=== PATIENT | female | born 2000 | race Caucasian/White ===

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

== ENCOUNTER 2022-03-01 16:15 | Inpatient (IN) | payer OTHER, MEDICAID ==
[~2022-03-01 16:15] MED LIST: Insulin Glargine,Human Rec. Analog 100 Units/ML 3 ML Pen SUBCUT ONE; Insulin Lispro 100 Unit/ML 3 ML KwikPen SUBCUT ONE
[2022-03-01] MEDS ORDERED: Ondansetron 4 MG/2 ML SDV ONE (17:42)
[2022-03-01] MEDS ORDERED: Insulin Lispro 100 Units/ML 3 ML Vial ONE (17:42)
[2022-03-01] MEDS ORDERED: Sodium Chloride 0.9% 1,000 ML IV ONE ×2 (17:45→21:30)
[2022-03-01] MEDS ORDERED: Pantoprazole 40 MG Vial IV ONE (22:00)
[2022-03-01] MEDS ORDERED: Nicotine 14 MG/24 Hr Patch TRDERM ONE (22:00)
[2022-03-01] MEDS ORDERED: hydrOXYzine HCl 25 MG Tab PO ONE (22:00)
[2022-03-26 11:25] LABS: ESTIMATED GFR 96 mL/min (>60)
== END 2022-03-02 13:40 | disposition home or self-care (01) | DRG 641 ==
LOC: JP.ED 16:15 → JP.ZCENSUS 20:30
PROVIDERS: ADMIT Nurse Practitioner; ATTEND Hospitalist
DX: E86.0 Dehydration (principal); E10.65 Type 1 diabetes mellitus with hyperglycemia; F41.8 Other specified anxiety disorders; F43.10 Post-traumatic stress disorder, unspecified
CPT/HCPCS: 82947; A9270-GY; C9113; J1815; J1815-GY; J2405; J7030

== ENCOUNTER 2022-04-23 17:34 | Emergency (ER) | payer OTHER, MEDICAID ==
[2022-04-23] MEDS ORDERED: Ondansetron 4 MG/2 ML SDV IVPUSH ONE (17:53)
[2022-04-23] MEDS ORDERED: Sodium Chloride 0.9% 1,000 ML IV SCH ×2 (18:00→20:00)
[2022-04-23] MEDS ORDERED: Insulin Regular, Human 100 Units/ML 3 ML Vial IVPUSH ONE (18:15)
[2022-04-23 18:34] LABS: ESTIMATED GFR 68 mL/min (>60)
[2022-04-23] MEDS ORDERED: Insulin Glargine,Human Rec. Analog 100 Units/ML 3 ML Pen SUBCUT ONE (21:14)
== END 2022-04-23 22:10 | disposition home or self-care (01) ==
LOC: JP.ED 17:34
DX: E10.10 Type 1 diabetes mellitus with ketoacidosis without coma (principal); R11.2 Nausea with vomiting, unspecified; F17.210 Nicotine dependence, cigarettes, uncomplicated; Z88.2 Allergy status to sulfonamides
CPT/HCPCS: 36415; 80053; 82009; 82947; 83690; 85025; 96361; 96374; 99284; J1815; J2405; J7030

== ENCOUNTER 2022-05-05 08:21 | Emergency (ER) | payer OTHER, MEDICAID ==
[2022-05-05] MEDS ORDERED: Sodium Chloride 0.9% 1,000 ML IV ONE (08:55)
[2022-05-05] MEDS ORDERED: Insulin Regular, Human 100 Units/ML 3 ML Vial IVPUSH ONE ×2 (09:27→10:44)
[2022-05-05 09:46] LABS: CORONAVIRUS COVID-19 NAA NEGATIVE (NEGATIVE)
[2022-05-05] MEDS ORDERED: 50% Dextrose in Water 50 ML Syringe IVPUSH PRN (10:44)
[2022-05-05] MEDS ORDERED: Glucagon,Human Recombinant 1 MG Vial IM PRN (10:44)
== END 2022-05-05 12:02 | disposition home or self-care (01) ==
LOC: JP.ED 08:21
DX: E10.10 Type 1 diabetes mellitus with ketoacidosis without coma (principal); E10.65 Type 1 diabetes mellitus with hyperglycemia; Z88.2 Allergy status to sulfonamides; Z79.4 Long term (current) use of insulin; Z20.822 Contact with and (suspected) exposure to COVID-19
CPT/HCPCS: 0241U; 36415; 80048; 82009; 82947; 85025; 87081; 87880; 96360; 99284; J1815; J7030

== ENCOUNTER 2022-05-09 14:48 | Emergency (ER) | payer OTHER, MEDICAID ==
[2022-05-09] MEDS ORDERED: Sodium Chloride 0.9% 10 ML Syringe FLUSH PRN (15:19)
[2022-05-09] MEDS ORDERED: Sodium Chloride 0.9% 1,000 ML IV ONE ×2 (15:19→16:58)
[2022-05-09] MEDS ORDERED: Amoxicillin/Clavulanate K 875-125 MG Tab PO ONE (15:22)
[2022-05-09] MEDS ORDERED: Pantoprazole 40 MG Tab.CR PO ONE (15:22)
[2022-05-09 15:54] LABS: ESTIMATED GFR 81 mL/min (>60)
[2022-05-09] MEDS ORDERED: Glucagon,Human Recombinant 1 MG Vial IM PRN ×2 (16:06→16:59)
[2022-05-09] MEDS ORDERED: 50% Dextrose in Water 50 ML Syringe IVPUSH PRN ×2 (16:06→16:59)
[2022-05-09] MEDS ORDERED: Insulin Lispro 100 Units/ML 3 ML Vial SUBCUT ONE ×2 (16:06→16:59)
[2022-05-09] MEDS ORDERED: Potassium Chloride 20 MEQ Tab.ER PO ONE (16:55)
== END 2022-05-09 18:19 | disposition home or self-care (01) ==
LOC: JP.ED 14:48
DX: E10.10 Type 1 diabetes mellitus with ketoacidosis without coma (principal); J01.90 Acute sinusitis, unspecified; R74.8 Abnormal levels of other serum enzymes; R79.89 Other specified abnormal findings of blood chemistry; E87.8 Other disorders of electrolyte and fluid balance, not elsewhere classified; Z72.0 Tobacco use; Z88.2 Allergy status to sulfonamides; Z79.899 Other long term (current) drug therapy
CPT/HCPCS: 36415; 76705; 80048; 80053; 82009; 82803; 82947; 83690; 85025; 93005; 96360; 96361; 99285; A9270; J1815; J3490; J7030

== ENCOUNTER 2022-05-27 18:48 | Emergency (ER) | payer OTHER, MEDICAID ==
[2022-05-27] MEDS ORDERED: Sodium Chloride 0.9% 10 ML Syringe FLUSH PRN ×2 (19:23→20:22)
[2022-05-27] MEDS ORDERED: Sodium Chloride 0.9% 1,000 ML IV SCH ×2 (19:30→20:45)
[2022-05-27] MEDS ORDERED: HYDROmorphone 1 MG/ML Syringe IVPUSH ONE (19:55)
[2022-05-27] MEDS ORDERED: Ondansetron 4 MG/2 ML SDV IVPUSH ONE (19:56)
[2022-05-27 20:04] LABS: ESTIMATED GFR 89 mL/min (>60)
[2022-05-27] MEDS ORDERED: Insulin Regular in 0.9 % NACL 100 ML IV SCH (20:30)
[2022-05-28] MEDS: Sodium Chloride 0.9% 1,000 ML IV SCH ×2 (00:11→07:39)
[2022-05-28] MEDS ORDERED: Iopamidol 612 MG/ML 100 ML Bottle IV STA (00:18)
[2022-05-28] MEDS ORDERED: Sodium Chloride 0.9% 50 ML IV STA (00:19)
[2022-05-28] MEDS ORDERED: Glucagon,Human Recombinant 1 MG Vial IM PRN (05:38)
[2022-05-28] MEDS ORDERED: 50% Dextrose in Water 50 ML Syringe IVPUSH PRN (05:38)
[2022-05-28] MEDS ORDERED: Non-Formulary Medication 1 Each (Insulin Aspart [Novolog] 100 UNIT/ML Pen) SUBCUT SCH (07:00)
[2022-05-28] MEDS: Insulin Glargine,Human Rec. Analog 100 Units/ML 3 ML Pen SUBCUT SCH ×2 (07:25→09:11)
[2022-05-28] MEDS: Insulin Lispro 100 Unit/ML 3 ML KwikPen SUBCUT SCH ×2 (07:27→11:45)
[2022-05-28] MEDS ORDERED: Non-Formulary Medication 1 Each (Insulin Degludec [Tresiba Flextouch U-100] 100 UNIT/ML Pe SQ SCH (21:00)
== END 2022-05-28 13:28 | disposition home or self-care (01) ==
LOC: JP.ED 18:48
DX: K85.00 Idiopathic acute pancreatitis without necrosis or infection (principal); E10.10 Type 1 diabetes mellitus with ketoacidosis without coma; Z88.2 Allergy status to sulfonamides
CPT/HCPCS: 36415; 36600; 74177; 80048; 80053; 81001; 82009; 82803; 82947; 83690; 83735; 84100; 84132; 85025; 87040; 96361; 96374; 96375; 99284-25; 99285; J1170; J1815; J1815-GY; J2405; J3490; J7030; Q9967

== ENCOUNTER 2022-07-07 20:10 | Emergency (ER) | payer OTHER, MEDICAID | END 2022-07-07 21:01 | disposition home or self-care (01) | LOC: JP.ED 20:10 | DX: L05.01 Pilonidal cyst with abscess (principal); E10.9 Type 1 diabetes mellitus without complications; F17.210 Nicotine dependence, cigarettes, uncomplicated; Z88.2 Allergy status to sulfonamides | CPT/HCPCS: 99282 ==

== ENCOUNTER 2022-07-10 19:01 | Inpatient (IN) | payer OTHER, MEDICAID ==
[2022-07-10] MEDS ORDERED: Sodium Chloride 0.9% 1,000 ML IV ONE (19:28)
[2022-07-10] MEDS ORDERED: fentaNYL 50 MCG/ML SDV IVPUSH ONE (19:58)
[2022-07-10] MEDS ORDERED: Insulin Regular, Human 100 Units/ML 3 ML Vial IVPUSH ONE (20:05)
[2022-07-10] MEDS ORDERED: Insulin Glargine,Human Rec. Analog 100 Units/ML 3 ML Pen SUBCUT ONE (20:12)
[2022-07-10] MEDS ORDERED: Pantoprazole 40 MG Vial IVPUSH SCH (21:00)
[2022-07-10] MEDS ORDERED: Piperacillin/Tazobactam 2.25 GM in Sodium Chloride 0.9% 50 ML IV ONE (21:21)
[2022-07-10] MEDS ORDERED: Sodium Chloride 0.9% 1,000 ML IV SCH ×2 (21:45→23:15)
[2022-07-10 22:35] LABS: CORONAVIRUS COVID-19 NAA NEGATIVE (NEGATIVE)
[2022-07-10] MEDS ORDERED: Docusate Sodium 100 MG Cap PO PRN (23:15)
[2022-07-10] MEDS ORDERED: Ondansetron 4 MG Tab.DIS PO PRN (23:15)
[2022-07-10] MEDS ORDERED: Ondansetron 4 MG/2 ML SDV IV PRN (23:15)
[2022-07-10] MEDS ORDERED: Acetaminophen 325 MG Tab PO PRN (23:15)
[2022-07-10] MEDS ORDERED: Bisacodyl 5 MG Tab PO PRN (23:15)
[2022-07-10] MEDS ORDERED: HYDROmorphone 0.5 MG/0.5 ML Syringe IVPUSH PRN (23:15)
[2022-07-10] MEDS: Nicotine 14 MG/24 Hr Patch TRDERM SCH (23:48)
[2022-07-11] MEDS: oxyCODONE 5 MG Tab PO PRN ×2 (00:06→09:49)
[2022-07-11] MEDS ORDERED: Piperacillin/Tazobactam 2.25 GM in Sodium Chloride 0.9% 50 ML IV SCH (04:00)
[2022-07-11] MEDS ORDERED: Lidocaine 1% 50 ML MDV ONE (06:57)
[2022-07-11] MEDS ORDERED: Bupivacaine 0.5%/EPINEPHrine 1:200,000 50 ML MDV ONE (06:58)
[2022-07-11] MEDS ORDERED: Dextrose 5%-Lactated Ringers 1,000 ML IV SCH (07:30)
[2022-07-11] MEDS ORDERED: fentaNYL 250 MCG/5 ML SDV ONE (07:46)
[2022-07-11] MEDS ORDERED: Midazolam 1 MG/ML 2 ML SDV ONE (07:46)
[2022-07-11] MEDS ORDERED: Dexamethasone 4 MG/ML SDV ONE (07:47)
[2022-07-11] MEDS ORDERED: Glycopyrrolate 0.2 MG/ML 5 ML MDV ONE (07:47)
[2022-07-11] MEDS ORDERED: Neostigmine Methylsulfate 1 MG/ML 5 ML Syringe ONE (07:47)
[2022-07-11] MEDS ORDERED: Propofol 200 MG/20 ML SDV ONE (07:47)
[2022-07-11] MEDS ORDERED: Ondansetron 4 MG/2 ML SDV ONE (07:47)
[2022-07-11] MEDS ORDERED: Rocuronium 50 MG/5 ML Vial ONE (07:47)
[2022-07-11] MEDS ORDERED: Lactated Ringers 0 ML ONE (07:54)
[2022-07-11] MEDS ORDERED: oxyCODONE 5 MG Tab PO PRN (08:36)
[2022-07-11] MEDS: Insulin Lispro 100 Unit/ML 3 ML KwikPen SUBCUT SCH ×2 (09:18→13:16)
[2022-07-11] MEDS: Nicotine 14 MG/24 Hr Patch TRDERM SCH (09:43)
[2022-07-11] MEDS ORDERED: Piperacillin/Tazobactam/Dext 2.25 GM in Premix Bag 1 BAG IV SCH (10:00)
[2022-07-11] MEDS ORDERED: Insulin Lispro 100 Unit/ML 3 ML KwikPen SUBCUT SCH (17:00)
[2022-07-11] MEDS ORDERED: Insulin Glargine,Human Rec. Analog 100 Units/ML 3 ML Pen SUBCUT SCH (21:00)
[2022-07-11] MEDS ORDERED: Pantoprazole 40 MG Tab.CR PO SCH (21:00)
== END 2022-07-11 16:30 | disposition home or self-care (01) | DRG 581 ==
LOC: JP.ED 19:01 → JP.MS 21:53
PROVIDERS: ADMIT Nurse Practitioner; ATTEND Student in an Organized Health Care Education/Training Program
PROC: 0JD70ZZ Extraction of Back Subcutaneous Tissue and Fascia, Open Approach (ICD-10-PCS; principal; 2022-07-11)
DX: L05.01 Pilonidal cyst with abscess (principal); H54.7 Unspecified visual loss; F41.9 Anxiety disorder, unspecified; F17.200 Nicotine dependence, unspecified, uncomplicated; E10.65 Type 1 diabetes mellitus with hyperglycemia; Z20.822 Contact with and (suspected) exposure to COVID-19; Z88.2 Allergy status to sulfonamides
CPT/HCPCS: 0241U; 36415; 76705; 80048; 82947; 85025; 85027; 87070; 87075; 87077; 87186; 87205; 96361; 96365; 96375; 99222; 99285-25; A9270-GY; C9113; J1100; J1170; J1815; J1815-GY; J2001; J2250; J2405; J2543; J2704; J2710; J3010; J3490; J7030; J7120

== ENCOUNTER → 2022-10-11 | Emergency (ER) | payer OTHER, MEDICAID | LOC: JP.ED 20:50 | DX: Z53.21 Procedure and treatment not carried out due to patient leaving prior to being seen by health care provider (principal) ==

== ENCOUNTER 2022-11-02 12:29 | Emergency (ER) | payer OTHER, MEDICAID | END 2022-11-02 13:46 | disposition left against medical advice (07) | LOC: JP.ED 12:29 | DX: Z53.21 Procedure and treatment not carried out due to patient leaving prior to being seen by health care provider (principal) ==

== ENCOUNTER 2022-11-07 01:45 | Inpatient (IN) | payer OTHER, MEDICAID ==
[2022-11-07] MEDS ORDERED: HYDROmorphone 1 MG/ML Syringe IM ONE (02:42)
[2022-11-07 03:06] LABS: HEMATOCRIT 38.2 % (38.4-49.7); HEMOGLOBIN 13.8 g/dL (12.9-16.9); MEAN CORPUSCULAR HEMOGLOBIN 31.7 pg (31.6-35.5); MEAN CORPUSCULAR HGB CONC 36.1 g/dL (31.6-35.5); MEAN CORPUSCULAR VOLUME 87.8 fL (81.4-99.0); PLATELET COUNT,PLT 281 K/uL (130-375); RED BLOOD CELL COUNT 4.35 M/uL (4.14-5.76); WHITE BLOOD CELL COUNT,WBC 10.3 K/uL (3.2-11.0)
[2022-11-07 03:22] LABS: CALCIUM 9.2 mg/dL (8.5-10.1); CREATININE 0.9 mg/dL (0.8-1.3); EST CRCL DRUG DOSING (CG) 130.93 mL/min; POTASSIUM,K 4.6 mmol/L (3.6-5.2)
[2022-11-07 03:26] LABS: ANION GAP 12.6 mmol/L (5.0-14.0)
[2022-11-07 03:27] LABS: BAND ABSOLUTE MAN 0.82 K/uL; BAND PERCENT MAN 8 % (5-11); LYMPHOCYTES ABSOLUTE MAN 0.62 K/uL (0.8-3.3); LYMPHOCYTES PERCENT MAN 6 % (24-44); MONOCYTES ABSOLUTE MAN 1.03 K/uL (0.20-0.90); MONOCYTES PERCENT MAN 10 % (2-6); NEUTROPHILS ABSOLUTE MAN 7.83 K/uL (1.0-7.6); SEG NEUTROPHILS PERCENT MAN 76 % (36-66)
[2022-11-07] MEDS ORDERED: HYDROmorphone 0.5 MG/0.5 ML Syringe IVPUSH ONE (07:02)
[2022-11-07] MEDS ORDERED: Piperacillin/Tazobactam 3.375 GM in Sodium Chloride 0.9% 50 ML IV SCH (07:15)
[2022-11-07] MEDS ORDERED: fentaNYL 250 MCG/5 ML SDV ONE ×2 (07:33→10:48)
[2022-11-07] MEDS ORDERED: Ondansetron 4 MG/2 ML SDV ONE (07:34)
[2022-11-07] MEDS ORDERED: Dexamethasone 4 MG/ML SDV ONE (07:34)
[2022-11-07] MEDS ORDERED: Neostigmine Methylsulfate 1 MG/ML 5 ML Syringe ONE (07:34)
[2022-11-07] MEDS ORDERED: Rocuronium 50 MG/5 ML Vial ONE (07:34)
[2022-11-07] MEDS ORDERED: Succinylcholine 200 MG/10 ML MDV ONE (07:34)
[2022-11-07] MEDS ORDERED: Glycopyrrolate 0.2 MG/ML 5 ML MDV ONE (07:34)
[2022-11-07] MEDS ORDERED: Propofol 200 MG/20 ML SDV ONE (07:34)
[2022-11-07] MEDS ORDERED: Bupivacaine 0.5%/EPINEPHrine 1:200,000 50 ML MDV ONE (09:43)
[2022-11-07] MEDS ORDERED: Meropenem 500 MG SDV ONE (09:43)
[2022-11-07] MEDS ORDERED: fentaNYL 50 MCG/ML SDV IVPUSH ONE (10:01)
[2022-11-07] MEDS: Lactated Ringers 1,000 ML IV SCH ×3 (10:09→23:00)
[2022-11-07] MEDS ORDERED: HYDROmorphone 1 MG/ML Syringe IVPUSH PRN (10:43)
[2022-11-07] MEDS ORDERED: Ondansetron 4 MG Tab.DIS PO PRN (10:43)
[2022-11-07] MEDS ORDERED: Magnesium Hydroxide 400 MG/5 ML Susp 30 ML Cup PO PRN (10:43)
[2022-11-07] MEDS ORDERED: Ondansetron 4 MG/2 ML SDV IV PRN (10:43)
[2022-11-07] MEDS ORDERED: Scopolamine 1.5 MG Transdermal Patch ONE (11:16)
[2022-11-07] MEDS: Meropenem 1 GM in Sodium Chloride 0.9% 100 ML IV SCH ×2 (12:33→19:30)
[2022-11-07] MEDS: Insulin Lispro 100 Unit/ML 3 ML KwikPen SUBCUT SCH ×3 (12:46→21:08)
[2022-11-07] MEDS: Piperacillin/Tazobactam/Dext 3.375 GM in Premix Bag 1 BAG IV SCH ×2 (13:35→19:29)
[2022-11-07] MEDS: Nicotine 21 MG/24 Hr Patch TRDERM SCH ×2 (13:35→21:10)
[2022-11-07] MEDS: Enoxaparin 40 MG/0.4 ML Syringe SUBCUT SCH (13:36)
[2022-11-07 15:10] LABS: HEMOGLOBIN A1C 13.3 % (4.5-6.2)
[2022-11-07] MEDS: oxyCODONE 5 MG Tab PO PRN (19:28)
[2022-11-07] MEDS: Melatonin 3 MG Tab PO SCH (21:05)
[2022-11-07] MEDS: Acetaminophen 325 MG Tab PO PRN (21:18)
[2022-11-08] MEDS: Piperacillin/Tazobactam/Dext 3.375 GM in Premix Bag 1 BAG IV SCH ×4 (02:03→20:54)
[2022-11-08] MEDS: Acetaminophen 325 MG Tab PO PRN ×2 (02:05→22:04)
[2022-11-08] MEDS: Meropenem 1 GM in Sodium Chloride 0.9% 100 ML IV SCH (03:43)
[2022-11-08] MEDS: oxyCODONE 5 MG Tab PO PRN ×4 (03:46→19:23)
[2022-11-08 05:01] LABS: HEMATOCRIT 32.9 % (38.4-49.7); HEMOGLOBIN 11.7 g/dL (12.9-16.9); MEAN CORPUSCULAR HGB CONC 35.6 g/dL (31.6-35.5); MEAN CORPUSCULAR VOLUME 89.9 fL (81.4-99.0); RED BLOOD CELL COUNT 3.66 M/uL (4.14-5.76); WHITE BLOOD CELL COUNT,WBC 11.9 K/uL (3.2-11.0)
[2022-11-08 05:18] LABS: CALCIUM 8.5 mg/dL (8.5-10.1); CREATININE 0.9 mg/dL (0.8-1.3); EST CRCL DRUG DOSING (CG) 130.93 mL/min; POTASSIUM,K 4.3 mmol/L (3.6-5.2)
[2022-11-08 05:38] LABS: ANION GAP 15.3 mmol/L (5.0-14.0)
[2022-11-08] MEDS: Lactated Ringers 1,000 ML IV SCH (08:01)
[2022-11-08] MEDS ORDERED: Vancomycin 1 GM SDV IV SCH (09:00)
[2022-11-08] MEDS: Insulin Glargine,Human Rec. Analog 100 Units/ML 3 ML Pen SUBCUT SCH (09:05)
[2022-11-08] MEDS: Insulin Lispro 100 Unit/ML 3 ML KwikPen SUBCUT SCH ×4 (09:07→22:11)
[2022-11-08] MEDS: Nicotine 21 MG/24 Hr Patch TRDERM SCH (09:07)
[2022-11-08] MEDS ORDERED: Vancomycin 1.6 GM in Sodium Chloride 0.9% 250 ML IV ONE (10:00)
[2022-11-08] MEDS: Enoxaparin 40 MG/0.4 ML Syringe SUBCUT SCH (13:48)
[2022-11-08] MEDS ORDERED: Benzocaine/Cetylpyridinium/Menthol Lozenge MUCMEM PRN (15:09)
[2022-11-08] MEDS: Melatonin 3 MG Tab PO SCH (21:59)
[2022-11-08] MEDS: Sennosides/Docusate Sodium 50-8.6 MG Tab PO PRN (21:59)
[2022-11-09] MEDS: Piperacillin/Tazobactam/Dext 3.375 GM in Premix Bag 1 BAG IV SCH ×2 (02:10→07:25)
[2022-11-09 05:31] LABS: BASOPHILS ABSOLUTE AUTO 0.05 K/uL (0.00-0.10); BASOPHILS PERCENT AUTO 0.4 % (0.1-1.3); EOSINOPHILS ABSOLUTE AUTO 0.14 K/uL (0.00-0.40); EOSINOPHILS PERCENT AUTO 1.1 % (0.0-5.4); HEMATOCRIT 32.4 % (38.4-49.7); HEMOGLOBIN 11.1 g/dL (12.9-16.9); IMMATURE GRAN ABSOLUTE AUTO 0.05 K/uL (0.00-0.23); IMMATURE GRAN PERCENT AUTO 0.4 % (0.0-0.7); LYMPHOCYTES ABSOLUTE AUTO 1.33 K/uL (0.8-3.3); LYMPHOCYTES PERCENT AUTO 10.4 % (11.4-47.7); MEAN CORPUSCULAR HEMOGLOBIN 31.4 pg (31.6-35.5); MEAN CORPUSCULAR HGB CONC 34.3 g/dL (31.6-35.5); MEAN CORPUSCULAR VOLUME 91.5 fL (81.4-99.0); MONOCYTES ABSOLUTE AUTO 1.39 K/uL (0.20-0.90); MONOCYTES PERCENT AUTO 10.9 % (3.3-12.6); NEUTROPHILS ABSOLUTE AUTO 9.78 K/uL (1.0-7.6); NEUTROPHILS PERCENT AUTO 76.8 % (40.0-78.1); PLATELET COUNT,PLT 265 K/uL (130-375); RED BLOOD CELL COUNT 3.54 M/uL (4.14-5.76); WHITE BLOOD CELL COUNT,WBC 12.7 K/uL (3.2-11.0)
[2022-11-09 05:47] LABS: CREATININE 0.8 mg/dL (0.8-1.3); EST CRCL DRUG DOSING (CG) 147.29 mL/min; POTASSIUM,K 4.1 mmol/L (3.6-5.2)
[2022-11-09 06:03] LABS: ANION GAP 9.1 mmol/L (5.0-14.0)
[2022-11-09] MEDS: Acetaminophen 325 MG Tab PO PRN (07:18)
[2022-11-09] MEDS: oxyCODONE 5 MG Tab PO PRN (07:20)
[2022-11-09] MEDS: Sennosides/Docusate Sodium 50-8.6 MG Tab PO PRN (07:25)
[2022-11-09] MEDS ORDERED: HYDROmorphone 0.5 MG/0.5 ML Syringe IVPUSH PRN (10:24)
[2022-11-09] MEDS: Insulin Glargine,Human Rec. Analog 100 Units/ML 3 ML Pen SUBCUT SCH (10:34)
[2022-11-09] MEDS: Nicotine 21 MG/24 Hr Patch TRDERM SCH (10:38)
[2022-11-09] MEDS: Insulin Lispro 100 Unit/ML 3 ML KwikPen SUBCUT SCH (12:15)
== END 2022-11-09 13:15 | disposition home or self-care (01) | DRG 580 ==
LOC: JP.ED 01:45 → JP.SDS 11:02 → JP.MS 11:05
PROVIDERS: ADMIT Internal Medicine; ATTEND Student in an Organized Health Care Education/Training Program
PROC: 0JD90ZZ Extraction of Buttock Subcutaneous Tissue and Fascia, Open Approach (ICD-10-PCS; principal; 2022-11-07)
DX: L05.01 Pilonidal cyst with abscess (principal); F32.1 Major depressive disorder, single episode, moderate; E10.65 Type 1 diabetes mellitus with hyperglycemia; F43.20 Adjustment disorder, unspecified; F17.210 Nicotine dependence, cigarettes, uncomplicated; Z20.822 Contact with and (suspected) exposure to COVID-19; Z91.198 Patient's noncompliance with other medical treatment and regimen for other reason; Z79.4 Long term (current) use of insulin; Z88.2 Allergy status to sulfonamides; Z79.899 Other long term (current) drug therapy
CPT/HCPCS: 10080; 36415; 80048; 82009; 82800; 82947; 83036; 83605; 85025; 85027; 87070; 87075; 87077; 87205; 96361; 96365; 96372; 96375; 99222; 99232; 99238; 99284; 99284-25; A9270-GY; J0330; J1100; J1170; J1650; J1815; J1815-GY; J2185; J2405; J2543; J2704; J2710; J3010; J3370; J3490; J7050; J7120; U0002

== ENCOUNTER 2023-03-14 20:55 | Emergency (ER) | payer OTHER, MEDICAID ==
[2023-03-14 21:28] LABS: BASOPHILS PERCENT AUTO 0.3 % (0.1-1.3); EOSINOPHILS ABSOLUTE AUTO 0.05 K/uL (0.00-0.40); EOSINOPHILS PERCENT AUTO 0.6 % (0.0-5.4); HEMATOCRIT 45.6 % (38.4-49.7); HEMOGLOBIN 16.3 g/dL (12.9-16.9); IMMATURE GRAN PERCENT AUTO 0.1 % (0.0-0.7); LYMPHOCYTES ABSOLUTE AUTO 1.95 K/uL (0.8-3.3); LYMPHOCYTES PERCENT AUTO 25.1 % (11.4-47.7); MEAN CORPUSCULAR HEMOGLOBIN 30.1 pg (31.6-35.5); MEAN CORPUSCULAR HGB CONC 35.7 g/dL (31.6-35.5); MEAN CORPUSCULAR VOLUME 84.1 fL (81.4-99.0); MONOCYTES ABSOLUTE AUTO 0.65 K/uL (0.20-0.90); MONOCYTES PERCENT AUTO 8.4 % (3.3-12.6); NEUTROPHILS ABSOLUTE AUTO 5.09 K/uL (1.0-7.6); NEUTROPHILS PERCENT AUTO 65.5 % (40.0-78.1); PLATELET COUNT,PLT 395 K/uL (130-375); RED BLOOD CELL COUNT 5.42 M/uL (4.14-5.76); WHITE BLOOD CELL COUNT,WBC 7.8 K/uL (3.2-11.0)
[2023-03-14 21:31] LABS: BASOPHILS ABSOLUTE AUTO 0.02 K/uL (0.00-0.10)
[2023-03-14 21:32] LABS: IMMATURE GRAN ABSOLUTE AUTO 0.01 K/uL (0.00-0.23)
[2023-03-14] MEDS ORDERED: Sodium Chloride 0.9% 1,000 ML IV ONE (21:42)
[2023-03-14 21:48] LABS: A/G RATIO 1.5 (1.2-2.2); ALANINE AMINOTRANSFERASE,ALT 26 U/L (12-78); ALBUMIN 4.9 g/dL (3.4-5.0); ALKALINE PHOSPHATASE 54 U/L (46-116); ASPARTATE AMNIOTRANSFERASE,AST 17 U/L (15-37); BILIRUBIN TOTAL 0.8 mg/dL (0.2-1.0); BLOOD UREA NITROGEN,BUN 9 mg/dL (7-18); CALCIUM 9.4 mg/dL (8.5-10.1); CARBON DIOXIDE,CO2 30 mmol/L (21-32); CHLORIDE,CL 97 mmol/L (100-108); CREATININE 0.9 mg/dL (0.8-1.3); EST CRCL DRUG DOSING (CG) 120.29 mL/min; ESTIMATED GFR 125 mL/min (>60); POTASSIUM,K 3.5 mmol/L (3.6-5.2); PROTEIN TOTAL,TP 8.2 g/dL (6.4-8.2); SODIUM,NA 136 mmol/L (140-148)
[2023-03-14 21:53] LABS: ANION GAP 12.5 mmol/L (5.0-14.0); GLUCOSE RANDOM 33 mg/dL (74-106)
[2023-03-14] MEDS ORDERED: Sodium Chloride 23.4% 77 MEQ in Dextrose 10% in Water 500 ML IV SCH ×2 (22:15)
[2023-03-14] MEDS ORDERED: Dextrose 10% in Water 250 ML IV SCH (22:30)
[2023-03-14 23:30] LABS: CALCIUM 8.8 mg/dL (8.5-10.1); CREATININE 0.9 mg/dL (0.8-1.3); EST CRCL DRUG DOSING (CG) 120.29 mL/min; POTASSIUM,K 4.3 mmol/L (3.6-5.2)
[2023-03-14 23:31] LABS: ANION GAP 10.3 mmol/L (5.0-14.0)
== END 2023-03-15 00:31 | disposition home or self-care (01) ==
LOC: JP.ED 20:55
DX: E10.65 Type 1 diabetes mellitus with hyperglycemia (principal); F17.210 Nicotine dependence, cigarettes, uncomplicated; Z88.2 Allergy status to sulfonamides; Z79.4 Long term (current) use of insulin
CPT/HCPCS: 36415; 80048; 80053; 82009; 82947; 85025; 96360; 99284; J7030

== ENCOUNTER 2023-03-16 10:14 | Emergency (ER) | payer OTHER, MEDICAID ==
[2023-03-16 11:08] LABS: HEMATOCRIT 40.1 % (38.4-49.7); MEAN CORPUSCULAR HGB CONC 34.9 g/dL (31.6-35.5); MEAN CORPUSCULAR VOLUME 85.9 fL (81.4-99.0); RED BLOOD CELL COUNT 4.67 M/uL (4.14-5.76); WHITE BLOOD CELL COUNT,WBC 6.4 K/uL (3.2-11.0)
[2023-03-16 11:09] LABS: BICARBONATE,VENOUS 27.1 mmol/L; CARBOXYHEMOGLOBIN 2.2 % (0.0-1.6); METHEMOGLOBIN 0.9 %; O2 SATURATION VENOUS 52.8; OXYHEMOGLOBIN 51.2 %; PCO2 VENOUS 46.1 mm/Hg; PH,VENOUS 7.387 (7.350-7.450); TOTAL HEMOGLOBIN 14.7 g/dL (13.5-18.0)
[2023-03-16 11:12] LABS: PO2 VENOUS 29.9 mm/Hg
[2023-03-16 11:29] LABS: A/G RATIO 1.4 (1.2-2.2); ALANINE AMINOTRANSFERASE,ALT 19 U/L (12-78); ALBUMIN 4.1 g/dL (3.4-5.0); ALKALINE PHOSPHATASE 51 U/L (46-116); ASPARTATE AMNIOTRANSFERASE,AST 15 U/L (15-37); BILIRUBIN TOTAL 0.6 mg/dL (0.2-1.0); BLOOD UREA NITROGEN,BUN 9 mg/dL (7-18); CALCIUM 8.7 mg/dL (8.5-10.1); CARBON DIOXIDE,CO2 29 mmol/L (21-32); CHLORIDE,CL 101 mmol/L (100-108); CREATININE 0.8 mg/dL (0.8-1.3); EST CRCL DRUG DOSING (CG) 146.06 mL/min; ESTIMATED GFR 129 mL/min (>60); GLUCOSE RANDOM 91 mg/dL (74-106); POTASSIUM,K 3.6 mmol/L (3.6-5.2); PROTEIN TOTAL,TP 7.1 g/dL (6.4-8.2); SODIUM,NA 137 mmol/L (140-148)
[2023-03-16 11:31] LABS: ANION GAP 10.6 mmol/L (5.0-14.0)
[2023-03-16 12:09] LABS: APPEARANCE,URINE CLEAR (CLEAR); BILIRUBIN,URINE NEGATIVE (NEGATIVE); COLOR,URINE YELLOW (YELLOW); GLUCOSE,URINE NEGATIVE (NEGATIVE); KETONES,URINE NEGATIVE (NEGATIVE); LEUKOCYTE ESTERASE,URINE NEGATIVE (NEGATIVE); NITRITE,URINE NEGATIVE (NEGATIVE); OCCULT BLOOD,URINE NEGATIVE (NEGATIVE); PROTEIN,URINE NEGATIVE (NEGATIVE); UROBILINOGEN,URINE 0.2 EU/dL (0.2-1.0)
[2023-03-16 12:15] LABS: AMPHETAMINES SCREEN, URINE NEGATIVE (NEGATIVE); BARBITURATE SCREEN,URINE NEGATIVE (NEGATIVE); BENZODIAZEPINES SCREEN,URINE NEGATIVE (NEGATIVE); METHADONE SCREEN, URINE NEGATIVE (NEGATIVE); METHAMPHETAMINES SCREEN, URINE NEGATIVE (NEGATIVE); OXYCODONE SCREEN,URINE NEGATIVE (NEGATIVE); PROPOXYPHENE SCREEN,URINE NEGATIVE (NEGATIVE); THC SCREEN,URINE 50 NG/ML PRESUMPTIVE POSITIVE (NEGATIVE)
[2023-03-16 12:21] LABS: AMORPHOUS SEDIMENT,URINE NOT SEEN; BACTERIA,URINE NOT SEEN; EPITHELIAL CELLS,URINE NOT SEEN; MUCUS,URINE NOT SEEN; RBC,URINE 0-5 (0-5); WBC,URINE 0-5 (0-5)
== END 2023-03-16 12:48 | disposition home or self-care (01) ==
LOC: JP.ED 10:14
DX: E10.649 Type 1 diabetes mellitus with hypoglycemia without coma (principal); Z88.2 Allergy status to sulfonamides
CPT/HCPCS: 36415; 80053; 80305-QW; 81001; 82803; 83605; 83735; 85027; 99284

== ENCOUNTER 2023-03-16 21:54 | Emergency (ER) | payer OTHER, MEDICAID | END 2023-03-16 23:34 | disposition home or self-care (01) | LOC: JP.ED 21:54 | DX: E10.65 Type 1 diabetes mellitus with hyperglycemia (principal); Z88.2 Allergy status to sulfonamides; Z79.4 Long term (current) use of insulin | CPT/HCPCS: 82947; 99285 ==

== ENCOUNTER 2023-04-20 13:29 | Emergency (ER) | payer OTHER, MEDICAID | END 2023-04-20 14:45 | disposition left against medical advice (07) | LOC: JP.ED 13:29 | DX: Z53.21 Procedure and treatment not carried out due to patient leaving prior to being seen by health care provider (principal) ==

== ENCOUNTER 2023-04-22 12:02 | Emergency (ER) | payer OTHER, MEDICAID | END 2023-04-22 14:22 | disposition left against medical advice (07) | LOC: JP.ED 12:02 | DX: Z53.21 Procedure and treatment not carried out due to patient leaving prior to being seen by health care provider (principal) ==

== ENCOUNTER 2023-04-27 13:06 | Inpatient (IN) | payer OTHER, MEDICAID ==
[2023-04-27] MEDS ORDERED: Sodium Chloride 0.9% 10 ML Syringe FLUSH PRN ×2 (14:32→18:51)
[2023-04-27] MEDS ORDERED: Lactated Ringers 1,000 ML IV ONE ×2 (14:39→16:00)
[2023-04-27] MEDS ORDERED: Ondansetron 4 MG/2 ML SDV IVPUSH ONE (14:39)
[2023-04-27 14:42] LABS: BASOPHILS ABSOLUTE AUTO 0.03 K/uL (0.00-0.10); BASOPHILS PERCENT AUTO 0.3 % (0.1-1.3); HEMATOCRIT 38.5 % (38.4-49.7); HEMOGLOBIN 14.2 g/dL (12.9-16.9); IMMATURE GRAN ABSOLUTE AUTO 0.02 K/uL (0.00-0.23); IMMATURE GRAN PERCENT AUTO 0.2 % (0.0-0.7); LYMPHOCYTES PERCENT AUTO 13.6 % (11.4-47.7); MEAN CORPUSCULAR HEMOGLOBIN 30.5 pg (31.6-35.5); MEAN CORPUSCULAR HGB CONC 36.9 g/dL (31.6-35.5); MEAN CORPUSCULAR VOLUME 82.6 fL (81.4-99.0); MONOCYTES PERCENT AUTO 5.2 % (3.3-12.6); NEUTROPHILS ABSOLUTE AUTO 7.69 K/uL (1.0-7.6); NEUTROPHILS PERCENT AUTO 80.7 % (40.0-78.1); PLATELET COUNT,PLT 387 K/uL (130-375); RED BLOOD CELL COUNT 4.66 M/uL (4.14-5.76); WHITE BLOOD CELL COUNT,WBC 9.5 K/uL (3.2-11.0)
[2023-04-27 14:56] LABS: BASE EXCESS ARTERIAL 3.5 mm/L; BICARBONATE,ARTERIAL 23.5 mmol/L (22.0-26.0); CARBOXYHEMOGLOBIN 2.4 % (0.0-1.6); OXYHEMOGLOBIN 96.2 %; PCO2 ARTERIAL 23.4 mmHg (35.0-42.0); TOTAL HEMOGLOBIN 14.2 g/dL (13.5-18.0)
[2023-04-27 15:01] LABS: A/G RATIO 1.6 (1.2-2.2); ALANINE AMINOTRANSFERASE,ALT 92 U/L (12-78); ALBUMIN 4.7 g/dL (3.4-5.0); ALKALINE PHOSPHATASE 73 U/L (46-116); ASPARTATE AMNIOTRANSFERASE,AST 53 U/L (15-37); BILIRUBIN TOTAL 0.6 mg/dL (0.2-1.0); BLOOD UREA NITROGEN,BUN 12 mg/dL (7-18); CALCIUM 9.7 mg/dL (8.5-10.1); CARBON DIOXIDE,CO2 25 mmol/L (21-32); CHLORIDE,CL 92 mmol/L (100-108); CREATININE 0.7 mg/dL (0.8-1.3); EST CRCL DRUG DOSING (CG) 141.67 mL/min; ESTIMATED GFR 134 mL/min (>60); GLUCOSE RANDOM 202 mg/dL (74-106); MAGNESIUM 1.9 mg/dL (1.8-2.4); PHOSPHORUS 1.8 mg/dL (2.5-4.9); POTASSIUM,K 3.5 mmol/L (3.6-5.2); PROTEIN TOTAL,TP 7.7 g/dL (6.4-8.2); SODIUM,NA 132 mmol/L (140-148)
[2023-04-27 15:03] LABS: O2 SATURATION ARTERIAL 99.3 % (95.0-98.0)
[2023-04-27 15:08] LABS: ANION GAP 18.5 mmol/L (5.0-14.0)
[2023-04-27 15:26] LABS: CORONAVIRUS COVID-19 NAA NEGATIVE (NEGATIVE); INFLUENZA A NAA NEGATIVE (NEGATIVE); INFLUENZA B NAA NEGATIVE (NEGATIVE); RESPIRATORY SYNCYTIAL VIR NAA NEGATIVE (NEGATIVE)
[2023-04-27 15:31] LABS: APPEARANCE,URINE CLEAR (CLEAR); BILIRUBIN,URINE NEGATIVE (NEGATIVE); COLOR,URINE YELLOW (YELLOW); GLUCOSE,URINE 500 mg/dL (NEGATIVE); KETONES,URINE 40 mg/dL (NEGATIVE); LEUKOCYTE ESTERASE,URINE NEGATIVE (NEGATIVE); NITRITE,URINE NEGATIVE (NEGATIVE); OCCULT BLOOD,URINE TRACE-INTACT (NEGATIVE); PROTEIN,URINE 30 mg/dL (NEGATIVE); UROBILINOGEN,URINE 0.2 EU/dL (0.2-1.0)
[2023-04-27 15:34] LABS: AMORPHOUS SEDIMENT,URINE NOT SEEN; BACTERIA,URINE FEW; EPITHELIAL CELLS,URINE RARE; MUCUS,URINE NOT SEEN; WBC,URINE NOT SEEN (0-5)
[2023-04-27 15:35] LABS: AMPHETAMINES SCREEN, URINE NEGATIVE (NEGATIVE); BARBITURATE SCREEN,URINE NEGATIVE (NEGATIVE); BENZODIAZEPINES SCREEN,URINE NEGATIVE (NEGATIVE); METHADONE SCREEN, URINE NEGATIVE (NEGATIVE); METHAMPHETAMINES SCREEN, URINE NEGATIVE (NEGATIVE); OXYCODONE SCREEN,URINE NEGATIVE (NEGATIVE); PROPOXYPHENE SCREEN,URINE NEGATIVE (NEGATIVE); THC SCREEN,URINE 50 NG/ML PRESUMPTIVE POSITIVE (NEGATIVE)
[2023-04-27 17:12] LABS: BASE EXCESS ARTERIAL 1.3 mm/L; BICARBONATE,ARTERIAL 23.7 mmol/L (22.0-26.0); CARBOXYHEMOGLOBIN 1.4 % (0.0-1.6); METHEMOGLOBIN 0.9 %; O2 SATURATION ARTERIAL 98.3 % (95.0-98.0); PCO2 ARTERIAL 31.7 mmHg (35.0-42.0); TOTAL HEMOGLOBIN 12.7 g/dL (13.5-18.0)
[2023-04-27] MEDS ORDERED: Sodium Chloride 0.9% 1,000 ML IV SCH ×2 (17:30→22:30)
[2023-04-27] MEDS ORDERED: Dextrose 5%-0.45% NaCl 1,000 ML IV SCH ×2 (18:51→22:45)
[2023-04-27] MEDS ORDERED: 50% Dextrose in Water 50 ML Syringe IV PRN (18:51)
[2023-04-27] MEDS ORDERED: Ondansetron 4 MG/2 ML SDV IV PRN (18:51)
[2023-04-27] MEDS ORDERED: Acetaminophen 325 MG Tab PO PRN (18:51)
[2023-04-27] MEDS ORDERED: Glucose Gel 15 GM in 37.5 GM Tube PO PRN (18:51)
[2023-04-27] MEDS: Insulin Lispro 100 Unit/ML 3 ML KwikPen SUBCUT SCH ×2 (19:24→22:51)
[2023-04-27] MEDS: Gabapentin 300 MG Cap PO SCH (20:19)
[2023-04-27] MEDS ORDERED: Insulin Glargine,Human Rec. Analog 100 Units/ML 3 ML Pen SUBCUT SCH (21:00)
[2023-04-27 21:06] LABS: CALCIUM 8.4 mg/dL (8.5-10.1); CREATININE 0.8 mg/dL (0.8-1.3); EST CRCL DRUG DOSING (CG) 130.45 mL/min; POTASSIUM,K 3.6 mmol/L (3.6-5.2)
[2023-04-27 21:07] LABS: ANION GAP 12.6 mmol/L (5.0-14.0)
[2023-04-27] MEDS ORDERED: Potassium Chloride 20 MEQ Tab.ER PO ONE (22:27)
[2023-04-28] MEDS: diphenhydrAMINE 25 MG Cap PO PRN ×2 (00:02→22:25)
[2023-04-28] MEDS: Insulin Lispro 100 Unit/ML 3 ML KwikPen SUBCUT SCH ×5 (03:08→21:22)
[2023-04-28 05:04] LABS: HEMATOCRIT 38.2 % (38.4-49.7); HEMOGLOBIN 13.5 g/dL (12.9-16.9); MEAN CORPUSCULAR HEMOGLOBIN 30.3 pg (31.6-35.5); MEAN CORPUSCULAR HGB CONC 35.3 g/dL (31.6-35.5); MEAN CORPUSCULAR VOLUME 85.8 fL (81.4-99.0); RED BLOOD CELL COUNT 4.45 M/uL (4.14-5.76); WHITE BLOOD CELL COUNT,WBC 10.6 K/uL (3.2-11.0)
[2023-04-28 05:22] LABS: ANION GAP 5.6 mmol/L (5.0-14.0); CALCIUM 8.7 mg/dL (8.5-10.1); CREATININE 0.8 mg/dL (0.8-1.3); EST CRCL DRUG DOSING (CG) 130.45 mL/min; MAGNESIUM 1.8 mg/dL (1.8-2.4); POTASSIUM,K 3.8 mmol/L (3.6-5.2)
[2023-04-28] MEDS ORDERED: Insulin Glargine,Human Rec. Analog 100 Units/ML 3 ML Pen SUBCUT SCH ×4 (07:16→21:15)
[2023-04-28] MEDS ORDERED: Sodium Chloride 0.9% 10 ML Syringe FLUSH ONE (08:11)
[2023-04-28] MEDS ORDERED: Sodium Chloride 0.9% 100 ML IV SCH (08:15)
[2023-04-28] MEDS ORDERED: Iopamidol 755 Mg/ML 100 ML Bottle IV SCH (08:15)
[2023-04-28] MEDS ORDERED: DULoxetine 30 MG Cap PO SCH (09:00)
[2023-04-28] MEDS ORDERED: FLUoxetine 20 MG Cap PO SCH (09:00)
[2023-04-28] MEDS ORDERED: Polyethylene Glycol 3350 Powder 17 GM Packet PO PRN (10:30)
[2023-04-28] MEDS: Gabapentin 300 MG Cap PO SCH ×3 (10:51→21:21)
[2023-04-28] MEDS: oxyCODONE 5 MG Tab PO PRN ×3 (10:58→22:25)
[2023-04-28] MEDS ORDERED: Metoprolol Tartrate 25 MG Tab PO SCH (16:15)
[2023-04-28] MEDS ORDERED: 50% Dextrose in Water 50 ML Syringe IV PRN (17:26)
[2023-04-28] MEDS ORDERED: Glucose Gel 15 GM in 37.5 GM Tube PO PRN (17:26)
[2023-04-28] MEDS ORDERED: Dextrose 5%-0.45% NaCl 1,000 ML IV SCH (23:15)
[2023-04-29] MEDS: oxyCODONE 5 MG Tab PO PRN ×3 (04:12→19:31)
[2023-04-29 05:38] LABS: ANION GAP 9.2 mmol/L (5.0-14.0); CALCIUM 8.4 mg/dL (8.5-10.1); CREATININE 0.6 mg/dL (0.8-1.3); EST CRCL DRUG DOSING (CG) 173.93 mL/min; POTASSIUM,K 3.9 mmol/L (3.6-5.2); TSH ULTRASENSITIVE 4.984 uIU/mL (0.358-3.740)
[2023-04-29] MEDS: Insulin Lispro 100 Unit/ML 3 ML KwikPen SUBCUT SCH ×4 (06:50→16:51)
[2023-04-29] MEDS: Gabapentin 300 MG Cap PO SCH ×3 (09:01→21:34)
[2023-04-29] MEDS ORDERED: Polyethylene Glycol 3350 Powder 17 GM Packet PO ONE (10:30)
[2023-04-29] MEDS: diphenhydrAMINE 25 MG Cap PO PRN (21:34)
[2023-04-29] MEDS: Insulin Glargine,Human Rec. Analog 100 Units/ML 3 ML Pen SUBCUT SCH (21:34)
[2023-04-30] MEDS: oxyCODONE 5 MG Tab PO PRN ×3 (01:16→23:23)
[2023-04-30] MEDS: Nicotine 21 MG/24 Hr Patch TRDERM SCH ×3 (01:17→21:20)
[2023-04-30] MEDS: Insulin Lispro 100 Unit/ML 3 ML KwikPen SUBCUT SCH ×3 (07:41→16:59)
[2023-04-30] MEDS: Metoprolol Tartrate 25 MG Tab PO SCH ×3 (08:48→20:39)
[2023-04-30] MEDS: Gabapentin 300 MG Cap PO SCH ×3 (08:50→20:38)
[2023-04-30] MEDS ORDERED: Sodium Phosphate,Monobasic/Sodium Phosphate,Dibasic Enema 133 ML Bottle RECTAL PRN (09:59)
[2023-04-30] MEDS ORDERED: Bisacodyl 10 MG Supp RECTAL ONE (10:30)
[2023-04-30] MEDS ORDERED: Polyethylene Glycol 3350 Powder 17 GM Packet PO ONE (10:30)
[2023-04-30] MEDS: diphenhydrAMINE 25 MG Cap PO PRN (20:43)
[2023-04-30] MEDS: Insulin Glargine,Human Rec. Analog 100 Units/ML 3 ML Pen SUBCUT SCH (21:17)
[2023-05-01] MEDS: Metoprolol Tartrate 25 MG Tab PO SCH (02:42)
[2023-05-01] MEDS: Insulin Lispro 100 Unit/ML 3 ML KwikPen SUBCUT SCH (07:36)
[2023-05-01] MEDS: Gabapentin 300 MG Cap PO SCH (08:23)
[2023-05-01] MEDS: Nicotine 21 MG/24 Hr Patch TRDERM SCH (08:23)
[2023-05-01] MEDS ORDERED: Metoprolol Succinate 50 MG Tab.ER PO SCH (09:00)
== END 2023-05-01 11:26 | disposition home or self-care (01) | DRG 638 ==
LOC: JP.ED 13:06 → JP.ICU 17:26
PROVIDERS: ADMIT Hospitalist; ATTEND Hospitalist
DX: E10.649 Type 1 diabetes mellitus with hypoglycemia without coma (principal); E87.3 Alkalosis; F32.1 Major depressive disorder, single episode, moderate; R00.0 Tachycardia, unspecified; E86.0 Dehydration; F41.9 Anxiety disorder, unspecified; E10.42 Type 1 diabetes mellitus with diabetic polyneuropathy; K52.9 Noninfective gastroenteritis and colitis, unspecified; Z11.52 Encounter for screening for COVID-19; Z88.2 Allergy status to sulfonamides; Z79.899 Other long term (current) drug therapy
CPT/HCPCS: 0241U; 36415; 36600; 71045; 71045-26; 71275; 71275-26; 80048; 80053; 80305-QW; 80307; 81001; 81003; 82009; 82803; 82947; 83605; 83735; 84100; 84145; 84443; 85025; 85027; 86140; 87040; 93306; 96361; 96374; 99223; 99233; 99238; 99284; 99285-25; A9270-GY; J1815; J1815-GY; J2405; J3490; J7030; J7042; J7120; Q9967

== ENCOUNTER 2023-06-12 14:12 | Emergency (ER) | payer OTHER, MEDICAID ==
[2023-06-12 15:12] LABS: BASOPHILS ABSOLUTE AUTO 0.04 K/uL (0.00-0.10); BASOPHILS PERCENT AUTO 0.5 % (0.1-1.3); EOSINOPHILS ABSOLUTE AUTO 0.19 K/uL (0.00-0.40); EOSINOPHILS PERCENT AUTO 2.2 % (0.0-5.4); HEMATOCRIT 36.5 % (38.4-49.7); HEMOGLOBIN 12.7 g/dL (12.9-16.9); IMMATURE GRAN PERCENT AUTO 0.2 % (0.0-0.7); LYMPHOCYTES ABSOLUTE AUTO 1.87 K/uL (0.8-3.3); LYMPHOCYTES PERCENT AUTO 21.8 % (11.4-47.7); MEAN CORPUSCULAR HEMOGLOBIN 30.3 pg (31.6-35.5); MEAN CORPUSCULAR HGB CONC 34.8 g/dL (31.6-35.5); MEAN CORPUSCULAR VOLUME 87.1 fL (81.4-99.0); MONOCYTES ABSOLUTE AUTO 0.88 K/uL (0.20-0.90); MONOCYTES PERCENT AUTO 10.2 % (3.3-12.6); NEUTROPHILS ABSOLUTE AUTO 5.59 K/uL (1.0-7.6); NEUTROPHILS PERCENT AUTO 65.1 % (40.0-78.1); PLATELET COUNT,PLT 341 K/uL (130-375); RED BLOOD CELL COUNT 4.19 M/uL (4.14-5.76); WHITE BLOOD CELL COUNT,WBC 8.6 K/uL (3.2-11.0)
[2023-06-12 15:13] LABS: BASE EXCESS VENOUS 4.8 mm/L; CARBOXYHEMOGLOBIN 2.7 % (0.0-1.6); METHEMOGLOBIN 0.5 %; O2 SATURATION VENOUS 72.1; OXYHEMOGLOBIN 69.8 %; TOTAL HEMOGLOBIN 13.2 g/dL (13.5-18.0)
[2023-06-12 15:14] LABS: IMMATURE GRAN ABSOLUTE AUTO 0.02 K/uL (0.00-0.23)
[2023-06-12 15:33] LABS: A/G RATIO 1.1 (1.2-2.2); ALANINE AMINOTRANSFERASE,ALT 24 U/L (12-78); ALBUMIN 3.6 g/dL (3.4-5.0); ALKALINE PHOSPHATASE 99 U/L (46-116); ANION GAP 10.1 mmol/L (5.0-14.0); ASPARTATE AMNIOTRANSFERASE,AST 16 U/L (15-37); BILIRUBIN TOTAL 0.4 mg/dL (0.2-1.0); BLOOD UREA NITROGEN,BUN 9 mg/dL (7-18); CALCIUM 8.8 mg/dL (8.5-10.1); CARBON DIOXIDE,CO2 34 mmol/L (21-32); CHLORIDE,CL 102 mmol/L (100-108); CREATININE 0.8 mg/dL (0.8-1.3); EST CRCL DRUG DOSING (CG) 139.63 mL/min; ESTIMATED GFR 129 mL/min (>60); GLUCOSE RANDOM 49 mg/dL (74-106); POTASSIUM,K 4.1 mmol/L (3.6-5.2); SODIUM,NA 142 mmol/L (140-148)
[2023-06-12 15:35] LABS: SEDIMENTATION RATE MANUAL 20 mm/hr (0-20)
== END 2023-06-12 16:50 | disposition home or self-care (01) ==
LOC: JP.ED 14:12
DX: L03.115 Cellulitis of right lower limb (principal); E11.9 Type 2 diabetes mellitus without complications; Z79.4 Long term (current) use of insulin; Z88.2 Allergy status to sulfonamides
CPT/HCPCS: 36415; 73630-26-RT; 73630-RT; 80053; 82803; 82947; 83605; 85025; 85651; 99283; 99284

== ENCOUNTER 2023-07-10 15:53 | Emergency (ER) | payer OTHER, MEDICAID ==
[2023-07-10] MEDS ORDERED: Carbamide Peroxide 6.5% Otic Soln 15 ML Bottle EARRT ONE (16:37)
[2023-07-10 17:24] LABS: BASOPHILS ABSOLUTE AUTO 0.05 K/uL (0.00-0.10); BASOPHILS PERCENT AUTO 0.8 % (0.1-1.3); EOSINOPHILS ABSOLUTE AUTO 0.08 K/uL (0.00-0.40); EOSINOPHILS PERCENT AUTO 1.2 % (0.0-5.4); HEMATOCRIT 38.2 % (38.4-49.7); HEMOGLOBIN 13.3 g/dL (12.9-16.9); IMMATURE GRAN PERCENT AUTO 0.2 % (0.0-0.7); LYMPHOCYTES ABSOLUTE AUTO 1.41 K/uL (0.8-3.3); LYMPHOCYTES PERCENT AUTO 21.5 % (11.4-47.7); MEAN CORPUSCULAR HEMOGLOBIN 30.4 pg (31.6-35.5); MEAN CORPUSCULAR HGB CONC 34.8 g/dL (31.6-35.5); MEAN CORPUSCULAR VOLUME 87.2 fL (81.4-99.0); MONOCYTES ABSOLUTE AUTO 0.75 K/uL (0.20-0.90); MONOCYTES PERCENT AUTO 11.4 % (3.3-12.6); NEUTROPHILS ABSOLUTE AUTO 4.26 K/uL (1.0-7.6); NEUTROPHILS PERCENT AUTO 64.9 % (40.0-78.1); PLATELET COUNT,PLT 399 K/uL (130-375); RED BLOOD CELL COUNT 4.38 M/uL (4.14-5.76); WHITE BLOOD CELL COUNT,WBC 6.6 K/uL (3.2-11.0)
[2023-07-10 17:27] LABS: IMMATURE GRAN ABSOLUTE AUTO 0.01 K/uL (0.00-0.23)
[2023-07-10 17:30] LABS: APPEARANCE,URINE CLEAR (CLEAR); BILIRUBIN,URINE NEGATIVE (NEGATIVE); COLOR,URINE YELLOW (YELLOW); GLUCOSE,URINE NEGATIVE (NEGATIVE); KETONES,URINE NEGATIVE (NEGATIVE); LEUKOCYTE ESTERASE,URINE NEGATIVE (NEGATIVE); NITRITE,URINE NEGATIVE (NEGATIVE); OCCULT BLOOD,URINE NEGATIVE (NEGATIVE); PH,URINE 7.5 (5.0-8.0); PROTEIN,URINE NEGATIVE (NEGATIVE); UROBILINOGEN,URINE 0.2 EU/dL (0.2-1.0)
[2023-07-10 17:41] LABS: AMORPHOUS SEDIMENT,URINE MODERATE; BACTERIA,URINE MODERATE; EPITHELIAL CELLS,URINE NOT SEEN; MUCUS,URINE NOT SEEN; RBC,URINE NOT SEEN (0-5); WBC,URINE NOT SEEN (0-5)
[2023-07-10 17:46] LABS: A/G RATIO 0.9 (1.2-2.2); ALANINE AMINOTRANSFERASE,ALT 26 U/L (12-78); ALBUMIN 3.8 g/dL (3.4-5.0); ALKALINE PHOSPHATASE 97 U/L (46-116); ANION GAP 6.5 mmol/L (5.0-14.0); ASPARTATE AMNIOTRANSFERASE,AST 31 U/L (15-37); BILIRUBIN TOTAL 0.3 mg/dL (0.2-1.0); BLOOD UREA NITROGEN,BUN 8 mg/dL (7-18); CALCIUM 8.6 mg/dL (8.5-10.1); CARBON DIOXIDE,CO2 32 mmol/L (21-32); CHLORIDE,CL 102 mmol/L (100-108); CREATININE 0.7 mg/dL (0.8-1.3); EST CRCL DRUG DOSING (CG) 163.63 mL/min; ESTIMATED GFR 134 mL/min (>60); GLUCOSE RANDOM 122 mg/dL (74-106); PROTEIN TOTAL,TP 8.1 g/dL (6.4-8.2); SODIUM,NA 140 mmol/L (140-148)
== END 2023-07-10 18:42 | disposition home or self-care (01) ==
LOC: JP.ED 15:53
DX: L97.509 Non-pressure chronic ulcer of other part of unspecified foot with unspecified severity (principal); E10.21 Type 1 diabetes mellitus with diabetic nephropathy; E10.40 Type 1 diabetes mellitus with diabetic neuropathy, unspecified; Z88.2 Allergy status to sulfonamides; Z79.4 Long term (current) use of insulin
CPT/HCPCS: 36415; 73700-26-RT; 73700-RT; 76377; 80053; 81001; 83605; 84145; 85025; 85651; 99284

== ENCOUNTER 2024-03-23 01:09 | Observation (INO) | payer MEDICAID, OTHER ==
[2024-03-23 01:22] LABS: BASOPHILS ABSOLUTE AUTO 0.05 K/uL (0.00-0.10); BASOPHILS PERCENT AUTO 0.4 % (0.1-1.3); EOSINOPHILS ABSOLUTE AUTO 0.04 K/uL (0.00-0.40); EOSINOPHILS PERCENT AUTO 0.3 % (0.0-5.4); HEMATOCRIT 36.9 % (38.4-49.7); IMMATURE GRAN PERCENT AUTO 0.2 % (0.0-0.7); LYMPHOCYTES ABSOLUTE AUTO 2.61 K/uL (0.8-3.3); LYMPHOCYTES PERCENT AUTO 22.5 % (11.4-47.7); MEAN CORPUSCULAR HEMOGLOBIN 30.5 pg (31.6-35.5); MEAN CORPUSCULAR HGB CONC 35.2 g/dL (31.6-35.5); MEAN CORPUSCULAR VOLUME 86.6 fL (81.4-99.0); MONOCYTES ABSOLUTE AUTO 0.99 K/uL (0.20-0.90); MONOCYTES PERCENT AUTO 8.5 % (3.3-12.6); NEUTROPHILS ABSOLUTE AUTO 7.91 K/uL (1.0-7.6); NEUTROPHILS PERCENT AUTO 68.1 % (40.0-78.1); PLATELET COUNT,PLT 291 K/uL (130-375); RED BLOOD CELL COUNT 4.26 M/uL (4.14-5.76); WHITE BLOOD CELL COUNT,WBC 11.6 K/uL (3.2-11.0)
[2024-03-23 01:23] LABS: BASE EXCESS VENOUS -0.4 mm/L; BICARBONATE,VENOUS 24.8 mmol/L; CARBOXYHEMOGLOBIN 2.3 % (0.0-1.6); METHEMOGLOBIN 1.1 %; O2 SATURATION VENOUS 81.9; OXYHEMOGLOBIN 79.1 %; PCO2 VENOUS 45.1 mm/Hg; PH,VENOUS 7.359 (7.350-7.450); PO2 VENOUS 52.2 mm/Hg; TOTAL HEMOGLOBIN 13.6 g/dL (13.5-18.0)
[2024-03-23] MEDS: Ondansetron 4 MG/2 ML SDV IVPUSH ONE (01:24)
[2024-03-23 01:27] LABS: IMMATURE GRAN ABSOLUTE AUTO 0.02 K/uL (0.00-0.23)
[2024-03-23 01:36] LABS: A/G RATIO 1.3 (1.2-2.2); ALANINE AMINOTRANSFERASE,ALT 34 U/L (12-78); ALBUMIN 4.4 g/dL (3.4-5.0); ALKALINE PHOSPHATASE 144 U/L (46-116); ASPARTATE AMNIOTRANSFERASE,AST 31 U/L (15-37); BILIRUBIN TOTAL 0.2 mg/dL (0.2-1.0); BLOOD UREA NITROGEN,BUN 12 mg/dL (7-18); CALCIUM 9.1 mg/dL (8.5-10.1); CARBON DIOXIDE,CO2 24 mmol/L (21-32); CHLORIDE,CL 96 mmol/L (100-108); ESTIMATED GFR 109 mL/min (>60); POTASSIUM,K 3.1 mmol/L (3.6-5.2); PROTEIN TOTAL,TP 7.8 g/dL (6.4-8.2); SODIUM,NA 136 mmol/L (140-148)
[2024-03-23] MEDS: Sodium Chloride 0.9% 500 ML IV ONE ×2 (01:41→01:56)
[2024-03-23] MEDS: Sodium Chloride 0.9% 1,000 ML IV ONE (01:41)
[2024-03-23 01:44] LABS: ANION GAP 19.1 mmol/L (5.0-14.0); GLUCOSE RANDOM 444 mg/dL (74-106)
[2024-03-23] MEDS ORDERED: 50% Dextrose in Water 50 ML Syringe IVPUSH PRN (01:53)
[2024-03-23] MEDS ORDERED: Glucagon,Human Recombinant 1 MG Vial IM PRN (01:53)
[2024-03-23] MEDS: Insulin Regular, Human 100 Units/ML 3 ML Vial IVPUSH ONE (02:00)
[2024-03-23 03:04] LABS: AMPHETAMINES SCREEN, URINE NEGATIVE (NEGATIVE); BARBITURATE SCREEN,URINE NEGATIVE (NEGATIVE); BENZODIAZEPINES SCREEN,URINE NEGATIVE (NEGATIVE); METHADONE SCREEN, URINE NEGATIVE (NEGATIVE); METHAMPHETAMINES SCREEN, URINE NEGATIVE (NEGATIVE); OXYCODONE SCREEN,URINE NEGATIVE (NEGATIVE); PROPOXYPHENE SCREEN,URINE NEGATIVE (NEGATIVE)
[2024-03-23 03:05] LABS: THC SCREEN,URINE 50 NG/ML PRESUMPTIVE POSITIVE (NEGATIVE)
[2024-03-23] MEDS: Sodium Chloride 0.9% 1,000 ML IV SCH (04:13)
[2024-03-23] MEDS: Potassium Chloride 20 MEQ in Premix Bag 1 BAG IV ONE (04:31)
[2024-03-23] MEDS: Potassium Chloride 10 MEQ in Premix Bag 1 BAG IV SCH (05:08)
[2024-03-23] MEDS: Ondansetron 4 MG/2 ML SDV IV PRN (08:02)
[2024-03-23] MEDS ORDERED: PREGABALIN 300 MG PO SCH (09:00)
[2024-03-23 09:20] LABS: ANION GAP 8.2 mmol/L (5.0-14.0); CALCIUM 8.5 mg/dL (8.5-10.1); CREATININE 0.8 mg/dL (0.8-1.3); EST CRCL DRUG DOSING (CG) 149.55 mL/min; POTASSIUM,K 4.1 mmol/L (3.6-5.2)
[2024-03-23] MEDS: Insulin Lispro 100 Unit/ML 3 ML KwikPen SUBCUT SCH (11:05)
[2024-03-23] MEDS: carBAMazepine 200 MG Tab PO SCH (11:09)
[2024-03-23] MEDS: DULoxetine 30 MG Cap PO SCH (11:09)
[2024-03-23] MEDS: FLU (Fluarix Triv) TS24-25(6MOS UP)/PF 45 MCG/0.5 ML Syringe IM ONE (11:10)
== END 2024-03-23 12:25 | disposition home or self-care (01) ==
LOC: JP.ED 01:09 → JP.ICU 02:27
PROVIDERS: ADMIT Family Medicine; ATTEND Internal Medicine
DX: F10.920 Alcohol use, unspecified with intoxication, uncomplicated (principal); E10.65 Type 1 diabetes mellitus with hyperglycemia; E87.6 Hypokalemia; Z79.899 Other long term (current) drug therapy; Z88.2 Allergy status to sulfonamides
CPT/HCPCS: 36415; 80048; 80053; 80305; 80307; 82803; 82947; 83690; 85025; 96361; 96365; 96366; 96375; 96376; 99285; A9270; G0378; J1815; J2405; J3480; J7030; J7040; 96374

== ENCOUNTER 2024-03-31 12:55 | Emergency (ER) | payer OTHER ==
[2024-03-31] MEDS: Bacitracin Oint 1 GM U/D Packet TOP ONE (14:54)
== END 2024-03-31 14:55 | disposition home or self-care (01) ==
LOC: JP.ED 12:55
DX: L03.031 Cellulitis of right toe (principal); E10.42 Type 1 diabetes mellitus with diabetic polyneuropathy; Z88.2 Allergy status to sulfonamides; Z79.4 Long term (current) use of insulin; Z79.899 Other long term (current) drug therapy
CPT/HCPCS: 99283

== ENCOUNTER 2025-01-22 14:41 | Emergency (ER) | payer OTHER ==
[2025-01-22 17:22] LABS: BASOPHILS ABSOLUTE AUTO 0.03 K/uL (0.00-0.10); BASOPHILS PERCENT AUTO 0.6 % (0.1-1.3); EOSINOPHILS ABSOLUTE AUTO 0.07 K/uL (0.00-0.40); EOSINOPHILS PERCENT AUTO 1.3 % (0.0-5.4); IMMATURE GRAN PERCENT AUTO 0.2 % (0.0-0.7); LYMPHOCYTES ABSOLUTE AUTO 1.36 K/uL (0.8-3.3); LYMPHOCYTES PERCENT AUTO 25.4 % (11.4-47.7); MONOCYTES ABSOLUTE AUTO 0.31 K/uL (0.20-0.90); MONOCYTES PERCENT AUTO 5.8 % (3.3-12.6); NEUTROPHILS ABSOLUTE AUTO 3.58 K/uL (1.0-7.6); NEUTROPHILS PERCENT AUTO 66.7 % (40.0-78.1); PLATELET COUNT,PLT 243 K/uL (130-375); RED BLOOD CELL COUNT 4.15 M/uL (4.14-5.76); WHITE BLOOD CELL COUNT,WBC 5.4 K/uL (3.2-11.0)
[2025-01-22 17:25] LABS: IMMATURE GRAN ABSOLUTE AUTO 0.01 K/uL (0.00-0.23)
[2025-01-22] MEDS: Ondansetron 4 MG Tab.DIS PO ONE (17:26)
[2025-01-22 17:43] LABS: A/G RATIO 1.3 (1.2-2.2); ALANINE AMINOTRANSFERASE,ALT 31 U/L (12-78); ASPARTATE AMNIOTRANSFERASE,AST 21 U/L (15-37); BILIRUBIN TOTAL 0.7 mg/dL (0.2-1.0); BLOOD UREA NITROGEN,BUN 15 mg/dL (7-18); CARBON DIOXIDE,CO2 31 mmol/L (21-32); CHLORIDE,CL 97 mmol/L (100-108); CREATININE 1.0 mg/dL (0.8-1.3); EST CRCL DRUG DOSING (CG) 110.76 mL/min; ESTIMATED GFR 109 mL/min (>60); POTASSIUM,K 4.5 mmol/L (3.6-5.2); PROTEIN TOTAL,TP 7.2 g/dL (6.4-8.2); SODIUM,NA 132 mmol/L (140-148)
[2025-01-22 17:46] LABS: APPEARANCE,URINE CLEAR (CLEAR); GLUCOSE,URINE 500 mg/dL (NEGATIVE); OCCULT BLOOD,URINE TRACE-INTACT (NEGATIVE)
[2025-01-22 17:47] LABS: GLUCOSE RANDOM 574 mg/dL (74-106)
[2025-01-22 17:49] LABS: AMPHETAMINES SCREEN, URINE NEGATIVE (NEGATIVE); METHADONE SCREEN, URINE NEGATIVE (NEGATIVE); METHAMPHETAMINES SCREEN, URINE NEGATIVE (NEGATIVE); OXYCODONE SCREEN,URINE NEGATIVE (NEGATIVE); PROPOXYPHENE SCREEN,URINE NEGATIVE (NEGATIVE); THC SCREEN,URINE 50 NG/ML PRESUMPTIVE POSITIVE (NEGATIVE)
[2025-01-22 17:51] LABS: SQUAMOUS EPITHELIAL CELLS,UR NOT SEEN /HPF; UROTHELIAL CELLS,URINE NOT SEEN /HPF
[2025-01-22] MEDS ORDERED: 50% Dextrose in Water 50 ML Syringe IVPUSH PRN (17:51)
[2025-01-22] MEDS: Alum Hydrox/Mag Hydrox/Simeth 15 ML, Lidocaine 2% 15 ML PO ONE (17:53)
[2025-01-22] MEDS: Insulin Lispro 100 Unit/ML 3 ML KwikPen SUBCUT ONE (18:11)
== END 2025-01-22 18:34 | disposition home or self-care (01) ==
LOC: JP.ED 14:41
DX: K52.9 Noninfective gastroenteritis and colitis, unspecified (principal); E10.9 Type 1 diabetes mellitus without complications; Z88.2 Allergy status to sulfonamides; Z79.4 Long term (current) use of insulin; Z79.899 Other long term (current) drug therapy
CPT/HCPCS: 36415; 80053; 80305; 81001; 84484; 85025; 93005; 99284; A9270; J1815; J3490; Q0162